=== PATIENT | female | born 1985 | race Caucasian/White ===

== ENCOUNTER 2016-10-30 08:15 | Outpatient (CLI) | payer MEDICAID ==
[~2016-10-30] VITALS: Ht 170.2 cm; Wt 124.7 kg
[~2016-10-30 08:15] MED LIST: ACHD5005 PO; DIPH25TA31 PO; FERR325T74 PO; IBP600T1 PO; INSU100V13 IJ; Metformin Hcl PO; PREN1TAB25 PO
--- OUTSIDE RECORDS SUMMARY | 2016-10-30 08:19 | XMS REPORT | Continuity of Care Document ---
Author Author [facility] Organization [facility] Address Unknown Phone Unavailable Care Team Providers Care Red Hat Linux Engineer Name Role Phone WENDI DIAZ DO PCP Insurance Providers Payer Name Policy Number Subscriber Name Relationship Jaylon Kancare Sunflowr [id number] Enrique Hester 20 Self / Same As Patient Advance Directives Directive Response Recorded Date/Time Advance Directives No 02/16/15 9:50am Health Care Power of Drop Board Worker No 02/16/15 9:50am Organ Donor Yes 02/16/15 9:50am Resuscitation Status Full Code 02/16/15 9:50am Problems No known problems or medical conditions. Medications Medication Dose Route Sig Days/Qty Instructions Order Date Discontinued Date Status Vit#96/Ferrous Fum/Fa 1 Each PO DAILY 02/16/15 Active Diphenhydramine Hcl 2 Cap PO BEDTIME For sleep 02/16/15 02/19/15 Discontinued Insulin Regular, Human 10 Unit IJ TWICE A DAY 02/16/15 02/19/15 Discontinued Acetaminophen/Hydrocodone Bitart (Hydrocodone/APAP 5/325mg) 1-2 Tab PO q4-6 hrs prn PRN PAIN 45 Qty 02/19/15 Active Ibuprofen 600 Mg PO GIVE EVERY 6 HR ON SCHEDULE 40 Qty 02/19/15 Active [Metformin Hcl] 500 Mg PO DAILY@1700 60 Qty 02/19/15 Active Ferrous Sulfate 325 Mg PO DAILY 60 Qty take until gone 02/19/15 Active Social History Social History Problem Response Recorded Date/Time Alcohol Use Denies Use 02/16/2015 11:12am Recreational Drug Use No 02/16/2015 11:12am Recent Foreign Travel No 02/16/2015 11:12am Recent Infectious Disease Exposure No 02/16/2015 11:12am Hospitalization with Isolation Denies 02/20/2015 3:26pm Sexually Transmitted Disease No 02/16/2015 11:12am HIV/AIDS No 02/16/2015 11:12am Smoking Status Never a Smoker 02/16/2015 9:50am Do you dip or chew tobacco? No 02/16/2015 9:50am Query Response Start Date Stop Date Smoking Status Never a Smoker Hospital Discharge Instructions Patient Instructions Physician Instructions New, Converted or Re-Newed RX: RX on Chart Instructions Daily metformin, continue iron daily until gone. Additional Follow Up: Yes (1-2 weeks with Brianna/Rodrigo; 6 weeks pp exam with Rodrigo. 2 hour glucola at 6 week checkup (tell office to put this on the schedule and give glucola at her incision check visit)) Activity: Activity as Tolerated (no lifting over 25 lbs) Driving Instructions: No Driving for 1 Week NO SMOKING: NO SMOKING Nothing Inside Vagina: No Douching, No [place], No Tampons Discharge Diet: No Restrictions Return to The Hospital For: fever over 101, excessive bleeding, incision problems Symptoms to Report to : Swelling Increased, Bleeding Excessive, Fever Over 101 Degrees F, Vaginal Bleeding Increase, Cramps in Feet or Legs, Vaginal Discharge Foul For Any Problems or Questions: Contact Your Physician Infection Signs and Symptoms: Increased Redness, Foul Odor of Wound, Increased Drainage, Skin Itchy or Has a Rash, Increased Swelling, Temperature Above 101 F Operative Area Clean and Dry: Keep Incision Clean/Dry Stitches/Andres/Dermabond: Dermabond Bathing Instructions: Shower Plan of Care Discharge Date 02/20/15 2:20pm Disposition 30 STILL A PATIENT Instructions/Education Provided DISCHARGE SECTION DISCHARGE Gestational Diabetes (DC) and Your Diet (DC) Vegetarian Diet (GEN) Iron Rich Diet (DC) Gestational Diabetes Diet (DC) Diabetes Mellitus Type 2 in Adults (DC) Wound Healing and your Diet (ED) Prescriptions See Medications Section Additional Instructions/Education Follow up with Dr. Diaz/Brianna on Thursday, February 27, 2012 at 9:30 a.m. March at 1:00 p.m. Call Office at [phone] with any questions or change of appointment. Functional Status No functional status results. Allergies, Adverse Reactions, Alerts Allergen Type Severity Reaction Status Last Updated No Known Drug Allergies Active 02/16/15 Immunizations Name Given Type Hepatitis A No Historical Hepatitis B Yes Historical Tetanus Booster (TDap) Less than 5yrs Historical MMR 02/17/15 Administered Tdap 02/17/15 Administered Vital Signs Acute Vital Signs Vital Response Date/Time Temperature (Fahrenheit) 97.0 degrees F (97.6 - 99.5) Temperature (Calculated Celsius) 36.68300 degrees C (36.4 - 37.5) Temperature Source Tympanic Pulse Rate (adult) 87 bpm (60 - 90) Respiratory Rate 18 bpm (12 - 24) O2 Sat by Pulse Oximetry 100 % (88 - 100) Blood Pressure 131/92 mm Hg Pain Pain Intensity 5 Height (Feet) 5 feet Height (Inches) 7.00 inches Height (Calculated Centimeters) 170.205479 cm Weight (Pounds) 275 pounds Weight (Calculated Grams) 239596.903 gm Weight (Calculated Kilograms) 124.018414 kilograms Calculated BMI 43.07 Results Laboratory Results Test Name Result Units Flags Reference Collection Date/Time Result Date/ Time Comments White Blood Count 12.7 10^3/uL H 4.3-11.0 02/18/2015 4:0702/18/2015 4: 18am Red Blood Count 3.91 10^6/uL L 4.35-5.85 02/18/2015 4:0702/18/2015 4: 18am Hemoglobin 10.7 G/DL L 11.5-16.0 02/18/2015 4:0702/18/2015 4:18am Hematocrit 33 % L 35-52 02/18/2015 4:0702/18/2015 4:18am Mean Corpuscular Volume 85 FL 80-99 02/18/2015 4:0702/18/2015 4: 18am Mean Corpuscular Hemoglobin 27 PG 25-34 02/18/2015 4:0702/18/2015 4: 18am Mean Corpuscular Hemoglobin Concent 32 G/DL 32-36 02/18/2015 4:07am 4:18am Red Cell Distribution Width 14.3 % 10.0-14.5 02/18/2015 4:2014 4:18am Platelet Count 194 10^3/uL 130-400 02/18/2015 4:02/18/2015 4:18am Mean Platelet Volume 10.6 FL H 7.4-10.4 02/18/2015 4:02/18/2015 4: 18am Neutrophils (%) (Auto) 76 % H 42-75 02/18/2015 4:02/18/2015 4:18am Lymphocytes (%) (Auto) 16 % 12-44 02/18/2015 4:02/18/2015 4:18am Monocytes (%) (Auto) 7 % 0-12 02/18/2015 4:02/18/2015 4:18am Eosinophils (%) (Auto) 1 % 0-10 02/18/2015 4:02/18/2015 4:18am Basophils (%) (Auto) 0 % 0-10 02/18/2015 4:02/18/2015 4:18am Neutrophils # (Auto) 9.6 X 10^3 H 1.8-7.8 02/18/2015 4:02/18/2015 4: 18am Lymphocytes # (Auto) 2.1 X 10^3 1.0-4.0 02/18/2015 4:02/18/2015 4: 18am Monocytes # (Auto) 0.9 X 10^3 0.0-1.0 02/18/2015 4:02/18/2015 4: 18am Eosinophils # (Auto) 0.1 10^3/uL 0.0-0.3 02/18/2015 4:02/18/2015 4 :18am Basophils # (Auto) 0.0 10^3/uL 0.0-0.1 02/18/2015 4:02/18/2015 4: 18am Sodium Level 139 MMOL/L 135-145 02/16/2015 8:4502/16/2015 9:51am Potassium Level 3.6 MMOL/L 3.6-5.0 02/16/2015 8:4502/16/2015 9:51am Chloride Level 109 MMOL/L H 98-107 02/16/2015 8:4502/16/2015 9:51am Carbon Dioxide Level 17 MMOL/L L 21-32 02/16/2015 8:45am 02/16/2015 9: 51am Blood Urea Nitrogen 4 MG/DL L 7-18 02/16/2015 8:4502/16/2015 9:51am Creatinine 0.51 MG/DL L 0.60-1.30 02/16/2015 8:4502/16/2015 9:51am BUN/Creatinine Ratio 8 02/16/2015 8:4502/16/2015 9:51am Estimat Glomerular Filtration Rate > 60 02/16/2015 8:452014 9:51am GFR INTERPRETIVE DATA UNITS FOR ESTIMATED GFR (eGFR): mL/min/1.73 M2 REFERENCE RANGE FOR ESTIMATED GFR (eGFR) eGFR NORMAL eGFR >60 MODERATELY DECREASED eGFR 30-59 SEVERLY DECREASED eGFR 15-29 KIDNEY FAILURE <15 (OR DIALYSIS) Glucose Level 107 MG/DL H 70-105 02/16/2015 8:4502/16/2015 9:51am Glucometer 87 MG/DL 70-110 02/19/2015 7:1202/19/2015 7:20am Calcium Level 9.3 MG/DL 8.5-10.1 02/16/2015 8:4502/16/2015 9:51am Total Bilirubin 0.3 MG/DL 0.1-1.0 02/16/2015 8:4502/16/2015 9:51am Alkaline Phosphatase 150 U/L H 40-136 02/16/2015 8:4502/16/2015 9: 51am Aspartate Amino Transf (AST/SGOT) 16 U/L 5-34 02/16/2015 8:452014 9:51am Alanine Aminotransferase (ALT/SGPT) 11 U/L 0-55 02/16/2015 8:4502/16 9:51am Total Protein 6.4 G/DL 6.4-8.2 02/16/2015 8:4502/16/2015 9:51am Albumin 3.4 G/DL 3.2-4.5 02/16/2015 8:4502/16/2015 9:51am Procedures Procedure Status Date Provider(s) section completed 02/17/15 DIAZ,WENDI C DO Encounters Encounter Location Date/Time Discharged Inpatient [facility] 02/16/15 8:18am
[2016-10-31] MEDS ORDERED: HYDR-3812 PO (09:26)
[2016-10-31] MEDS ORDERED: IBUP-1773 PO (09:26)
[2016-10-31] MEDS ORDERED: METH0.2T47 PO (09:26)
== END 2016-10-30 14:34 ==
LOC: PREOP 08:15
PROVIDERS: ATTEND Obstetrics & Gynecology
DX: Z01.818 Encounter for other preprocedural examination (principal); O02.1 Missed abortion

== ENCOUNTER 2016-10-31 07:19 | Day surgery (SDC) | payer MEDICAID ==
[~2016-10-31] VITALS: Ht 170.2 cm; Wt 124.7 kg
--- OUTSIDE RECORDS SUMMARY | 2016-10-31 07:22 | XMS REPORT | Continuity of Care Document ---
Author Author [facility] Organization [facility] Address Unknown Phone Unavailable Care Team Providers Care Oracle Analyst Name Role Phone WENDI DIAZ DO PCP Insurance Providers Payer Name Policy Number Subscriber Name Relationship Jaylon Kancare Sunflowr [id number] Enrique Hester 20 Self / Same As Patient Advance Directives Directive Response Recorded Date/Time Advance Directives No 10/30/16 2:24pm Health Care Power of Nailer Machine No 10/30/16 2:24pm Organ Donor Yes 10/30/16 2:24pm Resuscitation Status Full Code 10/30/16 2:24pm Problems No problem information available. Medications No known medications. Social History Social History Problem Response Recorded Date/Time Alcohol Use Denies Use 02/16/2015 11:12am Recreational Drug Use No 02/16/2015 11:12am Recent Foreign Travel No 10/30/2016 2:23pm Recent Infectious Disease Exposure No 10/30/2016 2:23pm Sexually Transmitted Disease No 10/30/2016 2:24pm HIV/AIDS No 10/30/2016 2:24pm Smoking Status Never a Smoker 10/30/2016 2:24pm Do you dip or chew tobacco? No 02/16/2015 9:50am Recent Hopitalizations No 10/30/2016 2:24pm Sexually Transmitted Disease No 10/30/2016 2:24pm Query Response Start Date Stop Date Smoking Status Never a Smoker Hospital Discharge Instructions No hospital discharge instructions. Plan of Care Discharge Date 10/30/16 2:34pm Prescriptions See Medication Section Functional Status No functional status results. Allergies, Adverse Reactions, Alerts No known allergies. Immunizations No immunization records. Vital Signs Acute Vital Signs Vital Response Date/Time Height (Feet) 5 feet 10/30/2016 2:22pm Height (Inches) 7.00 inches 10/30/2016 2:22pm Height (Calculated Centimeters) 170.292456 cm 10/30/2016 2:22pm Weight (Pounds) 275 pounds 10/30/2016 2:22pm Weight (Ounces) 0.0 oz 10/30/2016 2:22pm Weight (Calculated Grams) 640405.90 gm 10/30/2016 2:22pm Weight (Calculated Kilograms) 124.152237 kilograms 10/30/2016 2:22pm Calculated BMI 43.1 10/30/2016 2:22pm Results No known relevant diagnostic tests, laboratory data and/or discharge summary. Procedures No known history of procedures. Encounters Encounter Location Arrival/Admit Date Discharge/Depart Date Attending Provider Registered Clinic [facility] 10/30/16 8:15am WENDI DIAZ DO
--- OUTSIDE RECORDS SUMMARY | 2016-10-31 07:22 | XMS REPORT | Continuity of Care Document ---
Author Author [facility] Organization [facility] Address Unknown Phone Unavailable Care Team Providers Care Deputy Director Of Public Works Name Role Phone WENDI DIAZ DO PCP Insurance Providers Payer Name Policy Number Subscriber Name Relationship Jaylon Kancare Sunflowr [id number] Enrique Hester 18 Self / Same As Patient Advance Directives Directive Response Recorded Date/Time Advance Directives No 10/30/16 2:24pm Health Care Power of Petrophysicist No 10/30/16 2:24pm Organ Donor Yes 10/30/16 [...] 7.00 inches 10/30/2016 2:22pm Height (Calculated Centimeters) 170.624080 cm 10/30/2016 2:22pm Weight (Pounds) 275 pounds 10/30/2016 2:22pm Weight (Ounces) 0.0 oz 10/30/2016 2:22pm Weight (Calculated Grams) 110714.90 gm 10/30/2016 2:22pm Weight (Calculated Kilograms) 124.413209 kilograms 10/30/2016 2:22pm Calculated BMI 43.1 10/30/2016 2:22pm Results No known relevant diagnostic tests, laboratory data and/or discharge summary. Procedures No known history of procedures. Encounters Encounter Location Arrival/Admit Date Discharge/Depart Date Attending Provider Registered Clinic [facility] 10/30/16 8:15am WENDI DIAZ DO
[2016-10-31] MEDS ORDERED: LACTATED RINGERS 1,000 ML IV PRN (08:15)
[2016-10-31] MEDS ORDERED: ONDANSETRON 4 MG/2 ML (SDV) Z0FRAN ONE (08:24)
[2016-10-31] MEDS ORDERED: fentaNYL INJECTION 100 MCG/2 ML AMP ONE (08:24)
[2016-10-31] MEDS ORDERED: MIDAZOLAM 2 MG/2 ML (VERSED) VIAL ONE (08:24)
[2016-10-31] MEDS ORDERED: LACTATED RINGERS 1,000 ML IV ONE ×3 (08:24→09:15)
[2016-10-31] MEDS ORDERED: proPOfol 200 MG/20 ML (DIPRIVAN) VIAL IV ONE (08:24)
[2016-10-31] MEDS ORDERED: LIDOCAINE PF 2% 10 ML (XYLOCAINE) AMP ONE (08:24)
[2016-10-31] MEDS ORDERED: DEXAMETHASONE PF 10 MG/ML (DECADRON) VIAL ONE (08:25)
[2016-10-31] MEDS ORDERED: KETOROLAC 30 MG/ML VIAL ONE (08:25)
--- NOTE | 2016-10-31 08:26 | Progress Note-Pre Operative ---
Pre-Operative Progress Note H&P Reviewed The H&P was reviewed, patient examined and no changes noted. Date H&P Reviewed: Oct 31, 2016 Time H&P Reviewed: 08:15 Pre-Operative Diagnosis: Missed Ab at 8-9 weeks WENDI DIAZ DO Oct 31, 2016 08:26
[2016-10-31] MEDS ORDERED: ceFAZolin 1 GM/NS 50 ML IVPB IV ONE ×2 (08:30)
[2016-10-31] MEDS ORDERED: metroNIDAZOLE 500 MG/100 ML IVPB (PRE-MIX) IV ONE (08:30)
[2016-10-31] MEDS ORDERED: D5 LR IV SOLUTION 1,000 ML IV SCH (09:19)
--- NOTE | 2016-10-31 09:24 | Operative Report ---
Operative Report Date of Procedure/Surgery Oct 31, 2016 Post-Operative Diagnosis missed ab Procedure Performed Name of Procedure: suction dilation and curettage Description of Procedure Anesthesia Type: General Estimated blood loss (mL): 200 Specimen(s) collected products of conception Indications Missed ab at 8-9 weeks. Procedure With informed consent the patient was taken to the operating room where general anesthetic was found to be adequate. The bladder was drained of clear yellow urine with a straight catheter. There is approximately 400 mL of urine. A weighted speculum was placed in the vagina and the cervix was grasped with a tenaculum. The cervix is not dilated. There is minimal bleeding from the cervix. I gently dilated with Ladarius dilators to allow insertion of a 9 suction curet. I then did a gentle curet until products of conception removed. I then inserted a sharp curet to ensure removal of all tissue and did a gentle curettage until a gritty texture was felt and the uterine cry was heard. And followed up with one more suction to remove any additional blood. There was minimal bleeding. The tenaculum was removed from the anterior cervix and there was no bleeding from the tenaculum puncture sites. The patient was awakened and taken to the recovery room in a stable condition She went and laparotomy sponges were correct 2. Allergies and Home Medications Allergies Coded Allergies: No Known Drug Allergies (Unverified , 10/30/16) Home Medications No Active Prescriptions or Reported Meds WENDI DIAZ DO Oct 31, 2016 09:24
[2016-10-31] MEDS ORDERED: HYDR-3812 PO (09:26)
[2016-10-31] MEDS ORDERED: METH0.2T47 PO (09:26)
[2016-10-31] MEDS ORDERED: IBUP-1773 PO (09:26)
--- NOTE | 2016-10-31 09:28 | Discharge Inst-Women's Service ---
Discharge Inst-Women's Serv Depart Medication/Instructions New, Converted or Re-Newed RX: RX on Chart Instructions expect light bleeding or spotting for up to two weeks. Call if bleeding greater than 1 pad per hour x 2 hours. Final Diagnosis missed ab at 8-9 weeks Consults/Follow Up Additional Follow Up: Yes (2 weeks with Rodrigo) Activity Activity: Activity as Tolerated Driving Instructions: No Driving for 24 Hours NO SMOKING: NO SMOKING Nothing Inside Vagina: No Douching, No [place], No Tampons Diet Discharge Diet: No Restrictions Symptoms to Report to : Swelling Increased, Bleeding Excessive, Pain Increased, Fever Over 101 Degrees F, Vaginal Bleeding Increase, Vaginal Discharge Foul For Any Problems or Questions: Contact Your Physician WENDI DIAZ DO Oct 31, 2016 09:28
[2016-10-31] MEDS ORDERED: MEPERIDINE (DEMEROL) INJ 50 MG/ML IVP PRN (09:30)
[2016-10-31] MEDS ORDERED: ONDANSETRON 4 MG/2 ML (SDV) Z0FRAN IVP PRN ×2 (09:30)
[2016-10-31] MEDS ORDERED: morphine INJ 10 MG/ML 1ML (SYR OR VIAL) IVP PRN (09:30)
[2016-10-31] MEDS ORDERED: METHYLERGONOVINE 0.2 MG/ML (METHERGINE) AMP IM ONE (09:30)
[2016-10-31] MEDS ORDERED: HYDROcodone/APAP 5 MG/325 MG (LORTAB) TAB PO PRN (09:30)
[2016-10-31 10:00] VITALS: BP 107/70
[2016-10-31 10:30] VITALS: BP 104/65
[2016-10-31 10:49] VITALS: BP 104/65
[2016-10-31] MEDS ORDERED: IBUPROFEN 600 MG (MOTRIN) TAB PO SCH (18:00)
== END 2016-10-31 10:49 | disposition home or self-care (01) ==
LOC: SDC 07:19
PROVIDERS: ATTEND Obstetrics & Gynecology
DX: O02.1 Missed abortion (principal)
CPT/HCPCS: 84703; 87081; 88305

== ENCOUNTER → 2017-09-28 | Outpatient (CLI) | payer MEDICAID ==
[~2017-09-28] MED LIST changes: +IBUP-1773 PO; +METH0.2T47 PO
--- NOTE | 2017-09-28 14:36 | Diagnostic Imaging Report ---
INDICATION: survey. TECHNIQUE: Multiple real-time grayscale images were obtained over the gravid uterus. COMPARISON: None. FINDINGS: There is a single live fetus in a variable presentation. The placenta is fundal. The amniotic fluid volume is normal. cardiac activity is measured at 139 beats per minute. Cervical length is 5.5 cm. No gross abnormality is detected. kidneys, bladder, and stomach are visualized. brain is unremarkable. four-chamber heart view and three-vessel cord are visualized. The spine and cord insertion are unremarkable. Biometrical measurements are as follows: Biparietal 5.13 cm, age 21 weeks 4 days. Head circumference 19.12 cm, age 21 weeks 3 days. Abdominal circumference 17.45 cm, age 22 weeks 3 days. Femur length 3.79 cm, age 22 weeks 1 days. Sonographic estimate age: 22 weeks 0 days. Sonographic estimated date of delivery: 02/01/2018. Estimated Weight: 479 gm (+/- 70 gm). LMP percentile: 87%. heart rate: 139 beats per minute. number: 1 of 1. IMPRESSION: Single live IUP at approximately 22 weeks gestational age. The estimated date of confinement sonographically is 02/01/2018. Dictated by: Dictated on workstation # [id number]
== END ==
LOC: RAD 13:00
PROVIDERS: ATTEND Obstetrics & Gynecology
DX: Z36.89 Encounter for other specified antenatal screening (principal); Z3A.22 22 weeks gestation of pregnancy
CPT/HCPCS: 76805

== ENCOUNTER 2018-02-02 06:05 | Inpatient (IN) | payer MEDICAID ==
[~2018-02-02] VITALS: Ht 170.2 cm; Wt 129.7 kg
[~2018-02-02 06:05] MED LIST changes: +CITRIC ACID/SOB CIT (BICITRA) 30 ML UDC ONE; +METOCLOPRAMIDE INJ 10 MG/2 ML (REGLAN) ONE; +NS (IVPB) 50 ML ONE; +PREN1TAB44 PO; +ceFAZolin 1,000 MG (ANCEF) VIAL ONE; +raNItidine 50 MG/2 ML INJ (ZANTAC) ONE
[2018-02-02 06:10] VITALS: BP 131/82
[2018-02-02] MEDS ORDERED: LACTATED RINGERS 1,000 ML IV PRN ×2 (06:10)
[2018-02-02] MEDS ORDERED: METOCLOPRAMIDE INJ 10 MG/2 ML (REGLAN) IV ONE (06:15)
[2018-02-02] MEDS ORDERED: ceFAZolin INJECTION 1,000 MG in NS (IVPB) 50 ML IV ONE (06:15)
[2018-02-02] MEDS ORDERED: CITRIC ACID/SOB CIT (BICITRA) 30 ML UDC PO ONE (06:15)
[2018-02-02] MEDS ORDERED: CATHETER FLUSH 10 ML SYR IV PRN (06:15)
[2018-02-02 06:34] LABS: BILIRUBIN,URINE NEGATIVE (NEGATIVE); COLOR,URINE YELLOW; GLUCOSE, URINE (UA) NEGATIVE (NEGATIVE); KETONES,URINE 4+ (NEGATIVE); LEUKOCYTE ESTERASE ,URINE NEGATIVE (NEGATIVE); NITRITE,URINE NEGATIVE (NEGATIVE); PH,URINE 6 (5-9); PROTEIN,URINE 1+ (NEGATIVE); UROBILINOGEN,URINE NORMAL (NORMAL)
[2018-02-02] MEDS: CATHETER FLUSH 10 ML SYR IV SCH ×3 (06:35→21:20)
[2018-02-02 06:38] LABS: BASOPHILS % (AUTO) 0 % (0-10); EOSINOPHILS # (AUTO) 0.1 10^3/uL (0.0-0.3); EOSINOPHILS % (AUTO) 1 % (0-10); HEMATOCRIT 38 % (35-52); HEMOGLOBIN 12.5 G/DL (11.5-16.0); LYMPHOCYTES # (AUTO) 1.8 X 10^3 (1.0-4.0); LYMPHOCYTES % (AUTO) 19 % (12-44); MEAN CORPUSCULAR HEMOGLOBIN 28 PG (25-34); MEAN CORPUSCULAR HGB CONC 33 G/DL (32-36); MEAN CORPUSCULAR VOLUME 85 FL (80-99); MEAN PLATELET VOLUME 10.8 FL (7.4-10.4); MONOCYTES # (AUTO) 0.6 X 10^3 (0.0-1.0); MONOCYTES % (AUTO) 6 % (0-12); NEUTROPHILS # (AUTO) 7.3 X 10^3 (1.8-7.8); NEUTROPHILS % (AUTO) 74 % (42-75); PLATELET COUNT 190 10^3/uL (130-400); RED BLOOD COUNT 4.47 10^6/uL (4.35-5.85); RED CELL DISTRIBUTION WIDTH 14.4 % (10.0-14.5); WHITE BLOOD COUNT 9.8 10^3/uL (4.3-11.0)
[2018-02-02 06:45] LABS: BACTERIA,URINE MODERATE /HPF; CLARITY,URINE SLIGHTLY CLOUDY; WBC,URINE RARE /HPF
[2018-02-02] MEDS ORDERED: fentaNYL INJECTION 100 MCG/2 ML AMP ONE (06:47)
[2018-02-02] MEDS ORDERED: OXYTOCIN/NORMAL SALINE 1,000 ML IV ONE ×2 (06:47→06:50)
[2018-02-02] MEDS ORDERED: ONDANSETRON 4 MG/2 ML (SDV) Z0FRAN ONE (06:47)
[2018-02-02] MEDS ORDERED: KETAMINE HCL 100 MG/ML 5 ML VIAL ONE (06:48)
[2018-02-02] MEDS ORDERED: LIDOCAINE PF 2% 5 ML (XYLOCAINE) VIAL ONE (07:15)
[2018-02-02] MEDS ORDERED: BUPIVACAINE SPINAL 0.75% (SENSORCAINE) 2 ML AMP ONE (07:16)
--- NOTE | 2018-02-02 07:37 | Progress Note-Pre Operative ---
Pre-Operative Progress Note H&P Reviewed The H&P was reviewed, patient examined and no changes noted. Date Seen by Provider: February 02, 2018 Time Seen by Provider: 07:25 Date H&P Reviewed: February 02, 2018 Time H&P Reviewed: 07:25 Pre-Operative Diagnosis: Previous secition, ovarian cancer risk reduction WENDI DIAZ DO February 02, 2018 07:37
[2018-02-02] MEDS ORDERED: KETOROLAC 30 MG/ML VIAL ONE (08:23)
[2018-02-02] MEDS ORDERED: raNItidine 50 MG/2 ML INJ (ZANTAC) IJ SCH (09:00)
[2018-02-02] MEDS ORDERED: OXYTOCIN/NORMAL SALINE 500 ML IV SCH (09:03)
--- NOTE | 2018-02-02 09:05 | Cesarean Section Operative ---
Procedure Procedure Note Pre-operative Diagnosis: Marisol Nelson is a 30 /Para 3/1 ,Gestational Age 39 3/7 weeks with history of previous section. Desires for risk reduction of ovarian cancer Post-operative Diagnosis: same Procedure: Repeat low transverse section, risk reduction salpingectomy Physician: WENDI DIAZ Claims Customer Service Representative: Brianna Jimenez APRN Estimated blood loss: 500 mL Disposition: stable Findings: Viable female , Apgars 9/9, weight 10#3oz, intact placenta, 3vc, normal appearing uterus, ovaries, cyst in the broad ligament on the left, small peritubal cyst on the right. Indications:Marisol Nelsno is a 30 /Para 3/1 ,Gestational Age 39 3/7 weeks with history of previous section. Desires for risk reduction of ovarian cancer Procedure Details: The patient was seen in pre-op and the procedure was discussed with the patient in full, including the risks, benefits, and alternatives. All questions were answered. The patient was taken to the operating room and a time out was performed, verifying patient and procedure. the patient confirmed that she desires risk reduction of ovarian cancer and her childbearing is completed. After spinal anesthesia was placed by our anesthesia colleagues, the patient was placed in the dorsal supine with leftward tilt for uterine displacement.~ Her abdomen was then prepped and draped in the typical sterile fashion. A Pfannenstiel skin incision was made using a scalpel and carried down through the underlying fascia. The fascia was incised in the midline and tented up using Slava clamps. On both the inferior and superior fascia side the rectus muscle was dissected off bluntly and sharply using Barrientos scissors. The peritoneum was identified and entered bluntly in the midline. This was then stretched laterally using manual strength. After entering the abdominal cavity and confirming lack of intraperitoneal adhesions, an extra large Garrison retractor was placed and the lower uterine segment was visualized. A bladder flap was created with the use of Metzenbaum scissors.~ A scalpel was utilized to make a low transverse uterine incision. Amniotomy was performed with an Allis clamp with return of clear fluid. The infant's head was grasped and brought to the level of the incision. Fundal pressure was applied and infant was delivered without difficulty with assistance of a silastic suction. Mouth and nares were suctioned with bulb suction. After the umbilical cord was clamped and cut, the infant was handed off to the pediatric staff. A sample of cord blood was then obtained. The placenta was delivered intact via uterine massage. The uterus was exteriorized and cleared of all clots and debris. The uterine incision was closed using 0 Vicryl in a running locked fashion. A second imbricated layer was placed using 0 Vicryl in a running fashion as well. The uterus was flexed forward and the posterior rectouterine space was inspected and cleared of all clots and debris. Again the hysterotomy site was examined and hemostasis was observed. The bilateral tubes and ovaries were examined. There was a 3-4 cm cyst in the left broad ligament and a < 1 cm peritubal cyst on the right tube. The salpingectomy was now done bilaterally. I grasped each tube with Prather clamps and then the mesosalpinx was incised with the Bovie. I then used the LigaSure to incise at the cornu bilaterally and then along the mesosalpinx bilaterally. I ensured that the entire tube, as well as the cysts were completely excised and sent for pathology. There was good hemostasis. The uterus was placed back into the abdominal cavity and abdominal gutters were cleared of all clots and debris. A final check of the uterine incision showed it to be hemostatic. The peritoneum was closed using 3-0 Vicryl in a running fashion. The fascia was closed with 0 Vicryl in a running fashion. The subcutaneous space was hemostatic, and irrigated. The subcutaneous space was closed with 3-0 Vicryl in several single interrupted stitches. The skin was then closed using 4-0 Monocryl in a running subcuticular fashion. The skin edges were reapproximated together and were hemostatic. A pressure dressing was applied. All sponge, lap and needle counts were correct at the end of the procedure per nursing. Vitals - Labs Vital Signs - I&O Vital Signs Date Time Temp Pulse Resp B/P (MAP) Pulse Ox O2 Delivery O2 Flow Rate FiO2 02/02/18 06:25 98.3 02/02/18 06:10 93 18 131/82 (98) Room Air Labs Laboratory Tests 02/02/18 06:00: Urine Color YELLOW, Urine Clarity SLIGHTLY CLOUDY, Urine pH 6, Urine Specific [place] 1.020, Urine Protein 1+H, Urine Glucose (UA) NEGATIVE, Urine Ketones 4+H , Urine Nitrite NEGATIVE, Urine Bilirubin NEGATIVE, Urine Urobilinogen NORMAL, Urine Leukocyte Esterase NEGATIVE, Urine RBC (Auto) NEGATIVE, Urine RBC NONE, Urine WBC RARE, Urine Squamous Epithelial Cells 10-25H, Urine Crystals NONE, Urine Bacteria MODERATEH, Urine Casts NONE, Urine Mucus SMALLH, Urine Culture Indicated YES 02/02/18 06:20: White Blood Count 9.8, Red Blood Count 4.47, Hemoglobin 12.5, Hematocrit 38, Mean Corpuscular Volume 85, Mean Corpuscular Hemoglobin 28, Mean Corpuscular Hemoglobin Concent 33, Red Cell Distribution Width 14.4, Platelet Count 190, Mean Platelet Volume 10.8H, Neutrophils (%) (Auto) 74, Lymphocytes (%) (Auto) 19 , Monocytes (%) (Auto) 6, Eosinophils (%) (Auto) 1, Basophils (%) (Auto) 0, Neutrophils # (Auto) 7.3, Lymphocytes # (Auto) 1.8, Monocytes # (Auto) 0.6, Eosinophils # (Auto) 0.1, Basophils # (Auto) 0.0 Microbiology 02/02/18 Urine Culture - Preliminary, Resulted Sent To WENDI Barney DO February 02, 2018 09:05
[2018-02-02] MEDS ORDERED: MEASLES,MUMPS,RUBELLA 1 EA INJ SC SCH (09:15)
[2018-02-02] MEDS ORDERED: TETANUS,DIPTH,PERTUSS P/F (BOOSTRIX) 0.5 ML VIAL IM SCH (09:15)
[2018-02-02 10:30] VITALS: BP 101/66
[2018-02-02] MEDS ORDERED: diphenhydrAMINE 50 MG/ML INJ (BENADRYL) ONE (10:53)
[2018-02-02] MEDS ORDERED: diphenhydrAMINE 50 MG/ML INJ (BENADRYL) IVP NR (11:00)
[2018-02-02 11:45] VITALS: BP 126/72
[2018-02-02] MEDS ORDERED: D5 LR IV SOLUTION 1,000 ML IV ONE (12:21)
[2018-02-02] MEDS ORDERED: D5 LR IV SOLUTION 1,000 ML IV SCH (12:30)
[2018-02-02] MEDS: HYDROmorphone 1 MG/ML (DILAUDID) 1 ML SYRINGE IV PRN ×2 (14:08→21:20)
[2018-02-02 15:35] VITALS: BP 121/76
[2018-02-02] MEDS: KETOROLAC 30 MG/ML VIAL IVP SCH ×2 (15:36→20:40)
[2018-02-02] MEDS: HYDROcodone/APAP 5 MG/325 MG (LORTAB) TAB PO PRN (17:55)
[2018-02-02 20:24] VITALS: BP 133/83
[2018-02-02] MEDS: DOCUSATE SODIUM 100 MG (COLACE) CAP PO SCH (20:24)
[2018-02-03 00:50] VITALS: BP 120/79
[2018-02-03] MEDS: HYDROcodone/APAP 5 MG/325 MG (LORTAB) TAB PO PRN ×4 (00:50→20:25)
[2018-02-03] MEDS: KETOROLAC 30 MG/ML VIAL IVP SCH (02:05)
[2018-02-03] MEDS: CATHETER FLUSH 10 ML SYR IV SCH (02:05)
[2018-02-03 05:13] VITALS: BP 115/73
[2018-02-03 06:01] LABS: BASOPHILS % (AUTO) 0 % (0-10); EOSINOPHILS # (AUTO) 0.1 10^3/uL (0.0-0.3); EOSINOPHILS % (AUTO) 1 % (0-10); HEMATOCRIT 33 % (35-52); HEMOGLOBIN 10.6 G/DL (11.5-16.0); LYMPHOCYTES # (AUTO) 1.8 X 10^3 (1.0-4.0); LYMPHOCYTES % (AUTO) 20 % (12-44); MEAN CORPUSCULAR HEMOGLOBIN 27 PG (25-34); MEAN CORPUSCULAR HGB CONC 32 G/DL (32-36); MEAN CORPUSCULAR VOLUME 84 FL (80-99); MEAN PLATELET VOLUME 10.3 FL (7.4-10.4); MONOCYTES # (AUTO) 0.7 X 10^3 (0.0-1.0); MONOCYTES % (AUTO) 7 % (0-12); NEUTROPHILS # (AUTO) 6.7 X 10^3 (1.8-7.8); NEUTROPHILS % (AUTO) 72 % (42-75); PLATELET COUNT 173 10^3/uL (130-400); RED BLOOD COUNT 3.93 10^6/uL (4.35-5.85); RED CELL DISTRIBUTION WIDTH 14.4 % (10.0-14.5); WHITE BLOOD COUNT 9.3 10^3/uL (4.3-11.0)
[2018-02-03 08:15] VITALS: BP 98/66
[2018-02-03] MEDS: DOCUSATE SODIUM 100 MG (COLACE) CAP PO SCH ×2 (08:17→20:24)
[2018-02-03] MEDS: IBUPROFEN 600 MG (MOTRIN) TAB PO SCH ×3 (08:17→20:25)
[2018-02-03] MEDS: FERROUS SULF 325 MG (IRON) TAB PO SCH (08:17)
--- NOTE | 2018-02-03 11:15 | Anesthesia-Regional Post-Op ---
Regional Patient Condition Mental Status: Alert, Oriented x3 Circulation: Same as Pre-Op Headache: Absent Sensation: Full Recovery Motor Block: Absent Post Op Complications Complications None Follow Up Care/Instructions Patient Instructions None needed. Anesthesia/Patient Condition Patient is doing well, no complaints, stable vital signs, no apparent adverse anesthesia problems. No complications reported per nursing. D/C home per [facility] Criteria: Yes GILLES DUKE CRNA February 03, 2018 11:15
[2018-02-03 12:40] VITALS: BP 122/81
[2018-02-03 17:00] VITALS: BP 118/80
[2018-02-03 20:25] VITALS: BP 129/80
[2018-02-04] MEDS: HYDROcodone/APAP 5 MG/325 MG (LORTAB) TAB PO PRN ×2 (00:50→06:14)
[2018-02-04] MEDS: IBUPROFEN 600 MG (MOTRIN) TAB PO SCH ×3 (02:07→13:33)
[2018-02-04 02:10] VITALS: BP 127/86
[2018-02-04 08:33] VITALS: BP 135/89
[2018-02-04] MEDS: DOCUSATE SODIUM 100 MG (COLACE) CAP PO SCH (08:33)
[2018-02-04] MEDS: FERROUS SULF 325 MG (IRON) TAB PO SCH (08:33)
[2018-02-04] MEDS ORDERED: IBUP-844 PO (10:25)
[2018-02-04] MEDS ORDERED: ACHD5005 PO (10:25)
[2018-02-04] MEDS ORDERED: DOCU100C37 PO (10:25)
--- NOTE | 2018-02-04 11:49 | Postpartum Progress Note ---
Post Op PAtient seen and examined on POD #1 but not not saved. Doing well. PP hemoglobin was 10.6 Post-operative Day #2 Subjective: Patient is without complaints. Ambulating, voiding after marquis removed. Tolerating a regular diet without nausea or vomiting. Normal lochia. Pain is well controlled with oral pain medications. Passing flatus. breast feeding. [] Objective: 02/04/18 02/04/18 02:10 08:33 Temp 97.5 97.2 Pulse 78 77 Resp 18 18 B/P (MAP) 127/86 (100) 135/89 (104) Pulse Ox 96 98 O2 Delivery Room Air 02/04/18 00:00 Intake Total 2220 ml Output Total 3900 ml Balance -1680 ml Physical Exam: General - Alert and oriented, no apparent distress Abdomen - Soft, appropriately tender to palpation, non-distended, fundus firm at umbilicus Incision - clean, dry and intact; no erythema or induration, no drainage Extremities - no edema, negative Binh's bilaterally [] Assessment: [] post-operative day # [], status post []. Recovering well, hemodynamically stable Acute blood loss anemia [] Plan: Routine post-operative care. Encourage breast feeding. Encourage ambulation. VTE prophylaxis: SCDs. Ferrous sulfate supplementation. Plan for discharge [] Vitals - Labs Vital Signs - I&O Vital Signs Date Time Temp Pulse Resp B/P (MAP) Pulse Ox O2 Delivery O2 Flow Rate FiO2 02/04/18 08:33 97.2 77 18 135/89 (104) 98 Room Air 02/04/18 02:10 97.5 78 18 127/86 (100) 96 02/03/18 20:25 98.2 90 18 129/80 (96) 98 02/03/18 17:00 97.7 87 18 118/80 (93) 97 Room Air 02/03/18 12:40 97.7 83 18 122/81 (95) 98 Room Air I & O 02/04/18 07:00 Intake Total 3520 ml Output Total 5950 ml Balance -2430 ml Labs Microbiology 02/02/18 Urine Culture - Final, Complete See Comments WENDI DIAZ DO February 04, 2018 11:49 am
[2018-02-04 13:33] VITALS: BP 120/78
== END 2018-02-04 14:10 | disposition home or self-care (01) | DRG 765 ==
LOC: LDRP 06:05
PROVIDERS: ADMIT Obstetrics & Gynecology; ATTEND Obstetrics & Gynecology
PROC: 0UT70ZZ Resection of Bilateral Fallopian Tubes, Open Approach (ICD-10-PCS; 2018-02-02)
PROC: 10D00Z1 Extraction of Products of Conception, Low, Open Approach (ICD-10-PCS; principal; 2018-02-02 07:40)
DX: O34.211 Maternal care for low transverse scar from previous cesarean delivery (principal); O99.03 Anemia complicating the puerperium; D62 Acute posthemorrhagic anemia; O26.893 Other specified pregnancy related conditions, third trimester; N83.8 Other noninflammatory disorders of ovary, fallopian tube and broad ligament; Z40.03 Encounter for prophylactic removal of fallopian tube(s); Z3A.39 39 weeks gestation of pregnancy; Z37.0 Single live birth
CPT/HCPCS: 36415; 81000; 85025; 86850; 86900; 86901; 87088; 88305; 88307; 94664